=== PATIENT | male | born 1985 | race Caucasian/White ===

== ENCOUNTER 2017-06-16 17:42 | Emergency (ER) | payer MEDICAID | END 2017-06-16 18:40 | disposition home or self-care (01) | LOC: E/R 18:40 | DX: R21 Rash and other nonspecific skin eruption (principal); W57.XXXA Bitten or stung by nonvenomous insect and other nonvenomous arthropods, initial encounter; Y92.9 Unspecified place or not applicable | CPT/HCPCS: 99284; Z7502 ==

== ENCOUNTER 2018-04-14 16:25 | Emergency (ER) | payer OTHER, MEDICAID ==
[2018-04-14] MEDS: TETRACAINE 0.5% 4 ML OPH LEFT EYE (18:10)
[2018-04-14] MEDS: FLUORESCEIN STRIP LEFT EYE (18:10)
== END 2018-04-14 19:05 | disposition home or self-care (01) ==
LOC: FTE 16:25
DX: H57.12 Ocular pain, left eye (principal)
CPT/HCPCS: 99283; Z7502